=== PATIENT | male | born 1995 | race Caucasian/White ===

== ENCOUNTER 2017-03-01 12:28 | Emergency (ER) | payer SELFPAY ==
[~2017-03-01] VITALS: Ht 170.2 cm; Wt 110.2 kg
[2017-03-01] MEDS ORDERED: OXYcodone/APAP 5/325MG TABLET ONE (14:13)
[2017-03-01 14:18] VITALS: BP 116/61
[2017-03-01] MEDS ORDERED: OXYcodone/APAP 5/325MG TABLET PO ONE (14:30)
== END 2017-03-01 15:02 | disposition home or self-care (01) ==
LOC: ED 14:00
DX: M54.12 Radiculopathy, cervical region (principal)
CPT/HCPCS: 93005; 99283